=== PATIENT | female | born 1965 | race Caucasian/White ===

== ENCOUNTER 2017-08-24 06:13 | Inpatient (IN) ==
[2017-08-24] MEDS ORDERED: Isovue-370 500 ML INFUS..BTL IV ONE (06:33)
[2017-08-24] MEDS ORDERED: Ampicillin/Sulbactam 3,000 MG in 0.9 % Sodium Chloride Mini Bag 100 ML IVPB ONE (06:36)
--- NOTE | 2017-08-24 06:38 | Emergency Department Note ---
Disposition Clinical Impression: Ludwigs angina Disposition: Still a Patient Condition: Fair Referrals: Ponce Regalado CNP [Primary Care Provider] - Forms: ED Satisfaction Letter, Work/School Release Time of Disposition: 06:44 General Adult HPI - General Chief complaint: ED General Medical Stated complaint: facial swelling Time Seen by Provider: 08/24/17 06:21 Source: patient Mode of arrival: ambulatory Limitations: no limitations Nursing Notes Reviewed: Yes Vital Signs Reviewed: Yes - History of Present Illness HPI Narrative: 51-year-old female presents for evaluation of facial swelling. Patient states symptom onset was this morning when she woke up. Patient woke up around 5:30 this morning which is now or prior to ED arrival. Patient noted that she had facial swelling and she "double chin". Patient noted difficulty opening her mouth and had tenderness and swelling on her tongue. Patient states that she had low-grade fever yesterday. Denies any runny nose or cough. Patient states she has had a left lower tooth that has been bothering her. Patient noted this morning that she was drooling. Patient denies any difficulty breathing. No chest pain. Pain Scale: 6 - Related Data Allergies Allergy/AdvReac Type Severity Reaction Status Date / Time ciprofloxacin [From Cipro] Allergy Palpitation Verified 08/24/17 06:16 s All systems ED: reviewed and negative except as stated. Constitutional: Reports: fever Cardiovascular: Denies: chest pain Respiratory: Denies: cough, dyspnea Gastrointestinal: Denies: nausea, vomiting Past Medical History - Past Medical History Source: patient Medical history: Reports: no medical history Psychiatric history: Reports: depression - Social History Smoking Status: Current every day smoker Alcohol use: Reports: none Drug use: Reports: none Physical Exam - General Limitations: no limitations General appearance: alert, in no apparent distress - Head Head exam: atraumatic, normocephalic, normal inspection - Eye Eye exam: Present: normal appearance, PERRL, EOMI - ENT ENT exam: mucous membranes moist - Expanded ENT Exam External ear exam: Present: normal external inspection Nose exam: negative: rhinorrhea Mouth exam: Present: trismus, tongue elevation. Absent: drooling Teeth exam: Present: dental caries Throat exam: Present: other (Difficult to visualize a posterior oropharynx given the limited view. Patient has has trismus. Patient does have subungual swelling and tenderness consistent with ludwigs angina.). Absent: muffled voice - Neck Neck exam: Present: other (Subungual swelling and tenderness on palpation. Fullness of the anterior neck.) - Chest Chest inspection: Present: normal inspection - Respiratory Respiratory exam: Absent: respiratory distress - Cardiovascular Cardiovascular exam: Present: regular rate, normal rhythm - Abdominal Exam Abdominal exam: Present: soft, Non-Tender - Extremities Exam Extremities exam: Present: normal inspection. Absent: pedal edema - Expanded Lower Extremity Exam Neurovascular/Tendon exam: Present: normal capillary refill - Neurological Exam Neurological exam: Present: alert, oriented X3, CN II-XII intact - Skin Skin exam: Present: warm, dry, intact, normal color Course Course Narrative: Patient has concerning signs symptoms of ludwigs angina. Dr. Castillo discussed case with the on-call ENT will be in to evaluate the patient. Disposition will likely be an emergent case to the OR. - Consultations Consultation #1: Dr. Castillo Time: 06:32 Vital Signs Temperature 98.7 F 08/24/17 06:13 Pulse Rate 77 08/24/17 06:13 Respiratory Rate 16 08/24/17 06:13 Blood Pressure 149/84 08/24/17 06:13 O2 Sat by Pulse Oximetry 97 08/24/17 06:13 Temperature 98.7 F 08/24/17 06:21 Pulse Rate 72 08/24/17 07:04 Respiratory Rate 16 08/24/17 07:04 Blood Pressure 134/75 08/24/17 07:04 O2 Sat by Pulse Oximetry 97 08/24/17 07:04 Oxygen Delivery Oxygen Delivery Room Air Medical Decision Making - Lab Data Lab results reviewed: Yes I reviewed the patient's lab results. Result diagrams: 08/24/17 06:24 08/24/17 06:24 Lab Results 08/24/17 08/24/17 Range/Units 06:24 06:24 WBC 12.1 H (4.3-11.1) K/mcL RBC 4.59 (3.82-4.97) M/mcL Hgb 13.7 (11.5-15.4) g/dL Hct 40.3 (35.3-44.9) % MCV 87.8 (83.0-100.0) fL MCH 29.8 (28.0-33.3) pg MCHC 34.0 (31.6-35.5) g/dL RDW 12.7 (11.5-14.5) % Plt Count 249 (140-400) K/mcL MPV 9.1 L (9.4-12.4) fL Immature Gran % 0.4 (0-4) % Seg Neutrophils % 80.0 % Lymphocytes % 8.9 % Monocytes % 8.1 % Eosinophils % 2.1 % Basophils % 0.5 % Neutrophils # 9.7 H (1.6-8.9) K/mcL Lymphocytes # 1.1 (0.6-4.6) K/mcL Monocytes # 1.0 (0.0-1.3) K/mcL Eosinophils # 0.3 (0.0-0.6) K/mcL Basophils # 0.1 (0.0-0.2) K/mcL Sodium 132 L (136-145) mEq/L Potassium 4.0 (3.5-5.1) mEq/L Chloride 99 (98-107) mEq/L Carbon Dioxide 22 L (23-29) mEq/L BUN 11 (6-20) mg/dL Creatinine 0.63 (0.60-1.20) mg/dL Est GFR ( Amer) > 60 (> 60) Est GFR (Non-Af Amer) > 60 (> 60) BUN/Creatinine Ratio 17 (6-26) Glucose 98 (70-105) mg/dL Calculated Osmolality 273 L (280-300) Calcium 9.0 (8.6-10.3) mg/dL - EKG Data EKG #1 EKG attestation: Yes I reviewed and interpreted this EKG. EKG shows normal: sinus rhythm Rate: normal Rhythm: NSR Mode/QRS: normal Q waves: v1, v2 Interpretation: no acute changes S.B.A.Edwar - Jose Manuel Situation: Demographics Background: Presenting Complaint Assessment: Vital Signs, Patient/Family Expectation Recommendation: Barrier(s) to disposition, Recommendation based on pending studies, treatments, or consults S.B.ARudi Report Given to: Dr. Dez Richard Repor Time: 07:28
--- NOTE | 2017-08-24 06:39 | Emergency Department Note ---
Disposition Forms: ED Satisfaction Letter, Work/School Release General Adult HPI - General Chief complaint: ED General Medical Stated complaint: facial swelling Time Seen by Provider: 08/24/17 06:21 Source: patient Limitations: no limitations - History of Present Illness Pain Scale: 6 - Related Data Allergies Allergy/AdvReac Type Severity Reaction Status Date / Time ciprofloxacin [From Cipro] Allergy Palpitation Verified 08/24/17 06:16 s Past Medical History - Past Medical History Medical history: Reports: no medical history Psychiatric history: Reports: depression - Social History Smoking Status: Current every day smoker Alcohol use: Reports: none Drug use: Reports: none Physical Exam - General Limitations: no limitations General appearance: alert Course Vital Signs Temperature 98.7 F 08/24/17 06:13 Pulse Rate 77 08/24/17 06:13 Respiratory Rate 16 08/24/17 06:13 Blood Pressure 149/84 08/24/17 06:13 O2 Sat by Pulse Oximetry 97 08/24/17 06:13 Temperature 98.7 F 08/24/17 06:21 Pulse Rate 77 08/24/17 06:21 Respiratory Rate 16 08/24/17 06:21 Blood Pressure 149/84 08/24/17 06:21 O2 Sat by Pulse Oximetry 97 08/24/17 06:21 Oxygen Delivery Oxygen Delivery Room Air Attestation Statement - Attestation Attestation: I examined this patient and my medical decision-making was reviewed with the Resident Physician. I agree with the documented findings, disposition and treatment plan as described except to the extent set forth below. Findings consistent with Ki angina. We will obtain CT scan of the neck. Emergent consultation with ear nose and throat was obtained. Blood cultures and antibiotics were emergently initiated. The patient be surgically evaluated in the emergency department before final disposition.
[2017-08-24 06:43] LABS: Basophils # 0.1 K/mcL (0.0-0.2); Basophils % 0.5 %; Eosinophils # 0.3 K/mcL (0.0-0.6); Eosinophils % 2.1 %; Hematocrit 40.3 % (35.3-44.9); Hemoglobin 13.7 g/dL (11.5-15.4); Immature Granulocytes % 0.4 % (0-4); Lymphocytes # 1.1 K/mcL (0.6-4.6); Lymphocytes % 8.9 %; Mean Corpuscular Hemoglobin 29.8 pg (28.0-33.3); Mean Corpuscular Volume 87.8 fL (83.0-100.0); Mean Platelet Volume 9.1 fL (9.4-12.4); Monocytes % 8.1 %; Neutrophils # 9.7 K/mcL (1.6-8.9); Platelet Count 249 K/mcL (140-400); Red Blood Count 4.59 M/mcL (3.82-4.97); Red Cell Distribution Width 12.7 % (11.5-14.5)
[2017-08-24 07:03] LABS: BUN/Creatinine Ratio 17 (6-26); Blood Urea Nitrogen 11 mg/dL (6-20); Carbon Dioxide 22 mEq/L (23-29); Chloride 99 mEq/L (98-107); Glucose 98 mg/dL (70-105); Osmolality,Calculated 273 (280-300); Sodium 132 mEq/L (136-145); eGFR For African Americans > 60 (> 60); eGFR For Non-African Americans > 60 (> 60)
--- NOTE | 2017-08-24 07:16 | Emergency Department Note ---
Disposition Clinical Impression: Ludwigs angina Disposition: Admitted As Inpatient Condition: Fair Referrals: Ponce Regalado CNP [Primary Care Provider] - Forms: ED Satisfaction Letter, Work/School Release General Adult HPI - General Chief complaint: ED General Medical Stated complaint: facial swelling Time Seen by Provider: 08/24/17 06:21 Source: patient Mode of arrival: ambulatory Limitations: no limitations - History of Present Illness Pain Scale: 6 - Related Data Allergies Allergy/AdvReac Type Severity Reaction Status Date / Time ciprofloxacin [From Cipro] Allergy Palpitation Verified 08/24/17 06:16 s Constitutional: Reports: fever Cardiovascular: Denies: chest pain Respiratory: Denies: cough, dyspnea Gastrointestinal: Denies: nausea, vomiting Past Medical History - Past Medical History Medical history: Reports: no medical history Psychiatric history: Reports: depression - Social History Smoking Status: Current every day smoker Alcohol use: Reports: none Drug use: Reports: none Physical Exam - General Limitations: no limitations General appearance: alert, in no apparent distress Course Course Narrative: accetped sign out from Dr. Castillo. This is likey a case of Ki angina from an infected tooth. Dr. Molina (ENT) will be assessing at bedside and evlaution for whetehr this patinet needs to be taken to the OR. We will keep her NPO at this time. Patinet is stable and soft tissue neck is pending. - Consultations Consultation #1: ENT Dr. Molina evaluted patient at bedside and he does not anticipate an immeadiate airway compromise at this time and states that this is VERY EARLY onset danielle orginating form the 3rd lower molar and there is no drainable abscess. He states that he will not be taking the patien tot the OR immeadiately and that to have her on unasyn and vanc. She will be fine to be taken to a step down unit and will be evaluted with scope at noon Time: 07:39 Consultation #2: discussed case with Dr. Webb accepts patient ot his service. Agrees with step down unit. Time: 07:41 Vital Signs Temperature 98.7 F 08/24/17 06:13 Pulse Rate 77 08/24/17 06:13 Respiratory Rate 16 08/24/17 06:13 Blood Pressure 149/84 08/24/17 06:13 O2 Sat by Pulse Oximetry 97 08/24/17 06:13 Temperature 98.7 F 08/24/17 06:21 Pulse Rate 72 08/24/17 07:04 Respiratory Rate 16 08/24/17 07:04 Blood Pressure 134/75 08/24/17 07:04 O2 Sat by Pulse Oximetry 97 08/24/17 07:04 Oxygen Delivery Oxygen Delivery Room Air Medical Decision Making - Lab Data Result diagrams: 08/24/17 06:24 08/24/17 06:24 Lab Results 08/24/17 08/24/17 Range/Units 06:24 06:24 WBC 12.1 H (4.3-11.1) K/mcL RBC 4.59 (3.82-4.97) M/mcL Hgb 13.7 (11.5-15.4) g/dL Hct 40.3 (35.3-44.9) % MCV 87.8 (83.0-100.0) fL MCH 29.8 (28.0-33.3) pg MCHC 34.0 (31.6-35.5) g/dL RDW 12.7 (11.5-14.5) % Plt Count 249 (140-400) K/mcL MPV 9.1 L (9.4-12.4) fL Immature Gran % 0.4 (0-4) % Seg Neutrophils % 80.0 % Lymphocytes % 8.9 % Monocytes % 8.1 % Eosinophils % 2.1 % Basophils % 0.5 % Neutrophils # 9.7 H (1.6-8.9) K/mcL Lymphocytes # 1.1 (0.6-4.6) K/mcL Monocytes # 1.0 (0.0-1.3) K/mcL Eosinophils # 0.3 (0.0-0.6) K/mcL Basophils # 0.1 (0.0-0.2) K/mcL Sodium 132 L (136-145) mEq/L Potassium 4.0 (3.5-5.1) mEq/L Chloride 99 (98-107) mEq/L Carbon Dioxide 22 L (23-29) mEq/L BUN 11 (6-20) mg/dL Creatinine 0.63 (0.60-1.20) mg/dL Est GFR ( Amer) > 60 (> 60) Est GFR (Non-Af Amer) > 60 (> 60) BUN/Creatinine Ratio 17 (6-26) Glucose 98 (70-105) mg/dL Calculated Osmolality 273 L (280-300) Calcium 9.0 (8.6-10.3) mg/dL
[2017-08-24] MEDS ORDERED: *HR* FentaNYL (PF) 100 MCG/2 ML VIAL IVP ONE (07:41)
--- NOTE | 2017-08-24 07:52 | ENT - Consult Note ---
Date of Encounter: 08/24/17 Time of Encounter: 07:30 Assessment and Plan (1) Ludwigs angina Current Visit: Yes Status: Acute White female with early cellulitis sublingual and submental region with minimal symptoms or close observation and hospitalization with IV antibiotics planned to scope her later today to evaluate for any possible airway swelling CT scan obtained revealed no evidence of abscess or areas of other concern for close observation and hospitalization patient will probably need to have the second molar extracted eventually History of Present Illness Consult date: 08/24/17 Reason for ENT Consult: other (dental cellulitis) History of present illness: 51-year-old white female with history of onset several days ago left ear pain without hearing effects then developed some pain in the left second mandibular molar and yesterday developed some swelling in the submental region patient denies problems breathing talking or swallowing no drooling is not been on any antibiotics recently was seen in the emergency room treated with a dose of Unasyn and vancomycin and immediately felt some relief Past Med Surg Social Fam HX - Past Medical History Medical history: no medical history Psychiatric history: depression - Social History Smoking Status: Current every day smoker Alcohol use: none Drug use: none Medications and Allergies 3 Allergy/AdvReac Type Severity Reaction Status Date / Time ciprofloxacin [From Cipro] Allergy Palpitation Verified 08/24/17 06:16 s ENT Exam Initial Vital Signs Temp Pulse Resp BP Pulse Ox 98.7 F 77 16 149/84 97 08/24/17 06:13 08/24/17 06:13 08/24/17 06:13 08/24/17 06:13 08/24/17 06:13 - General physical appearance well developed, well nourished, no distress, no pain. negative: moderate distress, severe distress, moderate pain, severe pain, cachectic, obese - Eyes PERRL, normal ocular movement, icteric - ENT normal pinna, normal nares, normal mucosa, no hearing loss, no congestion, Other (Submental swelling minimal there is tenderness to palpation of the left second mandibular molar and some sublingual swelling of a mild degree the tongue is not thrust posteriorly there is no evidence of airway difficulty or swallowing difficulty or drooling). negative: decreased hearing, deviated nasal septum, nasal discharge, poor fci, dentures, mucosal exudate, dry mucosa - Neck no masses, trachea midline, no lymphadectomy. negative: deviated trachea, diffuse goiter, limited ROM - Respiratory normal expansion, normal respiratory effort, clear to percussion, clear to auscultation - Abdomen Abdomen: soft, non tender, bowel sounds, no tender, no surgical scars - Integumentary no rash, no growths, no abnormal pigmentation - Neurologic normal coordination, normal sensation - Musculoskeletal normal gait, normal posture - Psychiatric oriented to time, oriented to person, oriented to place, speech is normal, memory intact Exam Initial Vital Signs Temp Pulse Resp BP Pulse Ox 98.7 F 77 16 149/84 97 08/24/17 06:13 08/24/17 06:13 08/24/17 06:13 08/24/17 06:13 08/24/17 06:13 Results - Labs 08/24/17 06:24 08/24/17 06:24 Abnormal lab results WBC 12.1 K/mcL (4.3-11.1) H 08/24/17 06:24 MPV 9.1 fL (9.4-12.4) L 08/24/17 06:24 Neutrophils # 9.7 K/mcL (1.6-8.9) H 08/24/17 06:24 Sodium 132 mEq/L (136-145) L 08/24/17 06:24 Carbon Dioxide 22 mEq/L (23-29) L 08/24/17 06:24 Calculated Osmolality 273 (280-300) L 08/24/17 06:24 Diabetes panel 08/24/17 Range/Units 06:24 Sodium 132 L (136-145) mEq/L Potassium 4.0 (3.5-5.1) mEq/L Chloride 99 (98-107) mEq/L Carbon Dioxide 22 L (23-29) mEq/L BUN 11 (6-20) mg/dL Creatinine 0.63 (0.60-1.20) mg/dL Glucose 98 (70-105) mg/dL Calcium 9.0 (8.6-10.3) mg/dL Calcium panel 08/24/17 Range/Units 06:24 Calcium 9.0 (8.6-10.3) mg/dL Pituitary panel 08/24/17 Range/Units 06:24 Sodium 132 L (136-145) mEq/L Potassium 4.0 (3.5-5.1) mEq/L Chloride 99 (98-107) mEq/L Carbon Dioxide 22 L (23-29) mEq/L BUN 11 (6-20) mg/dL Creatinine 0.63 (0.60-1.20) mg/dL Glucose 98 (70-105) mg/dL Calcium 9.0 (8.6-10.3) mg/dL Adrenal panel 08/24/17 Range/Units 06:24 Sodium 132 L (136-145) mEq/L Potassium 4.0 (3.5-5.1) mEq/L Chloride 99 (98-107) mEq/L Carbon Dioxide 22 L (23-29) mEq/L BUN 11 (6-20) mg/dL Creatinine 0.63 (0.60-1.20) mg/dL Glucose 98 (70-105) mg/dL Calcium 9.0 (8.6-10.3) mg/dL All other labs normal. Consult Discharge Plan - Plan Referrals: Ponce Regalado CNP [Primary Care Provider] -
[2017-08-24] MEDS ORDERED: Naloxone 0.4 MG/ML INJ IVP PRN (10:24)
[2017-08-24] MEDS ORDERED: Ondansetron 4 MG/2 ML VIAL IVP PRN (10:24)
--- NOTE | 2017-08-24 10:42 | Internal Med History&Physical ---
Date of Encounter: 08/24/17 Time of Encounter: 08:47 Internal Medicine - H&P: HPI Chief complaint: "Neck swelling and pain" Admitted From: Emergency Dept Plans for Post Hospital Care: Home History of present illness: Ms. Carmichael is a 51 year old female who presented to ED with 1-day history of worsening neck swelling and pain. She states that she woke up this morning and noticed her neck and face were swollen and painful. She states that she has had tooth pain and minor facial swelling off and on over the last few months. Today, it was worse than ever before. She has had some left sided tooth pain. She denies any tongue swelling or difficulty breathing. She denies fever, chills, chest pain, SOB, nausea, vomiting, dysphagia, drooling, abdominal pain, changes in bladder, or changes in bowels. In the ED, WBC was mildly elevated at 12.1. Sodium mildly decreased at 132. Blood cultures were obtained. ENT was consulted, and they thought this was early Ki's angina. They plan on scoping her today. CT soft tissue neck showed no discrete abscess, but significant inflammation. Source is likely left lower molar. Patient was given one dose of IV unasyn and one dose of IV vancomycin in ED. She also received fentanyl IV for pain. She states that her pain is much better during my interview. She does not look to be in any distress. Respirations are stable on room air. Past Med Surg Social Fam HX - Past Medical History Attestation: Yes The following information was validated with the patient. Source: patient Medical history: no medical history Psychiatric history: depression - Past Surgical History Surgical History: no surgical history Additional surgical history: DNC - Social History Smoking Status: Current every day smoker Smokeless Tobacco Status: No Alcohol use: none Drug use: none - Family History Mother Adopted: Rosalie: Destiny Zapata Age: 78 Family Member Ethnicity: Non- Living Status: Still Living Hx Family Cardiac Disorders: Yes (HTN, CAD, CHF) Hx Family Endocrine Disorder: Yes (DM) Hx Family Neuromuscular Disorders: Yes (STROKE) - Additional Family History Additional family history: Family history verified with patient. Internal Medicine - H&P: Meds 3 Allergy/AdvReac Type Severity Reaction Status Date / Time ciprofloxacin [From Cipro] Allergy Palpitation Verified 08/24/17 06:16 s All Systems PM: A 10-system review of systems was performed and is negative for pertinent findings except as documented above in the HPI. - Constitutional Vitals: Temp Pulse Resp BP Pulse Ox 98.9 F 66 14 137/79 98 08/24/17 09:06 08/24/17 09:06 08/24/17 09:06 08/24/17 09:06 08/24/17 09:06 General appearance: Present: cooperative, A&O X 3, pleasant, no acute distress, answers questions appropriately - Head Head exam: Present: atraumatic, normal inspection, normocephalic - Eye Eye exam: Present: EOMI, PERRL. Absent: conjunctival injection, nystagmus, scleral icterus - ENT ENT exam: Present: mucous membranes moist, normal external ear exam - Neck Neck exam general surgery: Present: full ROM Additional comments: Moderate edema and mild TTP over anterior neck - Respiratory Respiratory exam: Present: CTAB. Absent: accessory muscle use, rales, rhonchi, wheezes Additional comments: Normal WOB - Cardiovascular Cardiovascular exam: Present: RRR, +S1, +S2. Absent: diastolic murmur, gallop, rubs, systolic murmur Additional comments: No BLE edema - GI/Abdominal GI/Abdominal exam: Present: normal bowel sounds, soft. Absent: distended, hepatomegaly, mass, splenomegaly, tenderness - Neurological Exam Neurological exam: Present: alert, CN II-XII intact, oriented X3, no focal deficits, strengths equal and symetr throughout. Absent: motor sensory deficit , facial droop, speech deficit - Psychiatric Psychiatric exam: Present: normal affect, normal mood. Absent: agitated, anxious, depressed - Skin Skin exam: Present: dry, intact, warm. Absent: cyanosis, rash Internal Med - H&P Results - Labs CBC & Chem 7: 08/24/17 06:24 08/24/17 06:24 - Assessment and plan (1) Ludwigs angina Current Visit: Yes Status: Acute Assessment and plan: Likely secondary to left lower molar infection. Admit inpatient to step-down unit for close monitoring. Monitor for airway compromise. ENT consulted; appreciate input. NPO for possible scope today. No abscess. Continue IV unasyn and IV vancomycin. Start IV toradol and SL oxycodone PRN pain. Continue IV NS while NPO. Monitor closely. (2) Tooth infection Current Visit: Yes Status: Acute Assessment and plan: IV antibiotics as per above. Will need dentist follow up after treatment of acute inflammation as per above. (3) Nicotine dependence Current Visit: Yes Status: Acute Assessment and plan: Start nicotine transdermal. Qualifiers: Nicotine product type: cigarettes Substance use status: unspecified nicotine-induced disorder Qualified Code(s): F17.219 - Nicotine dependence, cigarettes, with unspecified nicotine-induced disorders (4) DVT prophylaxis Current Visit: Yes Status: Acute Assessment and plan: Start lovenox 40 mg SQ QD and SCDs. - Time Spent With Patient Total time spent is greater than 50% in coordination of care (as documented) at patient's floor/unit and/or counseling patient: less than 15 minutes
[2017-08-24] MEDS: Ampicillin/Sulbactam 3,000 MG in 0.9 % Sodium Chloride Mini Bag 100 ML IVPB SCH ×2 (11:40→17:27)
[2017-08-24] MEDS: Ketorolac 15 MG/ML VIAL IVP PRN ×3 (11:40→23:33)
[2017-08-24] MEDS: Nicotine 14 MG PATCH.TD24 TD SCH (11:41)
[2017-08-24] MEDS: 0.9 % Sodium Chloride 1,000 ML IVC SCH (11:41)
[2017-08-24] MEDS: *HR* Enoxaparin 40 MG/0.4 ML SYRINGE SQ SCH (15:01)
[2017-08-24] MEDS: NORETHINDRONE ACET PO SCH (19:55)
[2017-08-24] MEDS: ESTRADIOL PO SCH (19:55)
[2017-08-24] MEDS: OXYCODONE Oral CONC 10 MG/0.5 ML ORAL.SYG SL PRN (21:12)
--- NOTE | 2017-08-24 22:06 | Electrocardiograph Report ---
[place] [facility] Test Date: 2017-08-24 Pat Name: Dana Carmichael Department: 103 Room: 2S4 Gender: F [employer] Planning Manager: LRS : 1965 Requested By: Camilo Mckeon Order Number: [id number] Reading MD: Enrrique Flores Measurements Intervals [place] Rate: 87 P: -12 [place]: 149 QRS: 38 QRSD: 93 T: 48 QT: 352 QTc: 396 Interpretive Statements SINUS RHYTHM Electronically Signed On 08-24-2017 22:04:14 EDT by Enrrique Flores
[2017-08-25] MEDS: OXYCODONE Oral CONC 10 MG/0.5 ML ORAL.SYG SL PRN ×5 (01:13→20:42)
[2017-08-25] MEDS: 0.9 % Sodium Chloride 1,000 ML IVC SCH ×3 (03:29→12:25)
[2017-08-25 06:21] LABS: Basophils % 0.5 %; Eosinophils # 0.3 K/mcL (0.0-0.6); Eosinophils % 3.4 %; Hematocrit 33.7 % (35.3-44.9); Hemoglobin 11.3 g/dL (11.5-15.4); Immature Granulocytes % 0.2 % (0-4); Lymphocytes # 1.6 K/mcL (0.6-4.6); Lymphocytes % 18.7 %; Mean Corpuscular HGB Conc 33.5 g/dL (31.6-35.5); Mean Corpuscular Hemoglobin 29.8 pg (28.0-33.3); Mean Corpuscular Volume 88.9 fL (83.0-100.0); Mean Platelet Volume 9.2 fL (9.4-12.4); Monocytes % 12.3 %; Neutrophils # 5.4 K/mcL (1.6-8.9); Platelet Count 218 K/mcL (140-400); Red Blood Count 3.79 M/mcL (3.82-4.97); Red Cell Distribution Width 12.9 % (11.5-14.5); Segmented Neutrophils % 64.9 %
[2017-08-25 06:32] LABS: BUN/Creatinine Ratio 20 (6-26); Blood Urea Nitrogen 11 mg/dL (6-20); Calcium 8.2 mg/dL (8.6-10.3); Carbon Dioxide 24 mEq/L (23-29); Chloride 105 mEq/L (98-107); Glucose 105 mg/dL (70-105); Osmolality,Calculated 278 (280-300); Potassium 4.3 mEq/L (3.5-5.1); Sodium 134 mEq/L (136-145); eGFR For African Americans > 60 (> 60); eGFR For Non-African Americans > 60 (> 60)
[2017-08-25] MEDS: ESTRADIOL PO SCH (07:30)
[2017-08-25] MEDS: NORETHINDRONE ACET PO SCH (07:30)
--- NOTE | 2017-08-25 07:51 | ENT - Progress Note ---
Date of Encounter: 08/25/17 Time of Encounter: 07:30 - Assessment and Plan (1) Ludwigs angina Current Visit: Yes Status: Acute left sice only submental and sublingual swelling pain improving still second molar source recommend continued iv ab and observation ok to feed white count decreased consider dc if need bed and fu on po antibiotics otherwise continue in hospital Subjective Patient reports: no new complaints, feels better, still having pain, pain is less, tolerating liquids well, afebrile Objective Initial Vital Signs Temp Pulse Resp BP Pulse Ox 98.7 F 77 16 149/84 97 08/24/17 06:13 08/24/17 06:13 08/24/17 06:13 08/24/17 06:13 08/24/17 06:13 - General physical appearance well developed, well nourished, moderate pain - Eyes PERRL, normal ocular movement - ENT normal nares - Neck trachea midline, other (swelling submental primarily left side) - Labs 08/25/17 05:46 08/25/17 05:46 Diabetes panel 08/25/17 Range/Units 05:46 Sodium 134 L (136-145) mEq/L Potassium 4.3 (3.5-5.1) mEq/L Chloride 105 (98-107) mEq/L Carbon Dioxide 24 (23-29) mEq/L BUN 11 (6-20) mg/dL Creatinine 0.55 L (0.60-1.20) mg/dL Glucose 105 (70-105) mg/dL Calcium 8.2 L (8.6-10.3) mg/dL Calcium panel 08/25/17 Range/Units 05:46 Calcium 8.2 L (8.6-10.3) mg/dL Pituitary panel 08/25/17 Range/Units 05:46 Sodium 134 L (136-145) mEq/L Potassium 4.3 (3.5-5.1) mEq/L Chloride 105 (98-107) mEq/L Carbon Dioxide 24 (23-29) mEq/L BUN 11 (6-20) mg/dL Creatinine 0.55 L (0.60-1.20) mg/dL Glucose 105 (70-105) mg/dL Calcium 8.2 L (8.6-10.3) mg/dL Adrenal panel 08/25/17 Range/Units 05:46 Sodium 134 L (136-145) mEq/L Potassium 4.3 (3.5-5.1) mEq/L Chloride 105 (98-107) mEq/L Carbon Dioxide 24 (23-29) mEq/L BUN 11 (6-20) mg/dL Creatinine 0.55 L (0.60-1.20) mg/dL Glucose 105 (70-105) mg/dL Calcium 8.2 L (8.6-10.3) mg/dL Consult Discharge Plan - Plan Referrals: Ponce Regalado CNP [Primary Care Provider] -
[2017-08-25] MEDS: Nicotine 14 MG PATCH.TD24 TD SCH (07:54)
[2017-08-25] MEDS: *HR* Enoxaparin 40 MG/0.4 ML SYRINGE SQ SCH (07:54)
[2017-08-25] MEDS: Ampicillin/Sulbactam 3,000 MG in 0.9 % Sodium Chloride Mini Bag 100 ML IVPB SCH ×5 (07:55→23:22)
[2017-08-25] MEDS: Ketorolac 15 MG/ML VIAL IVP PRN ×3 (08:00→21:54)
--- NOTE | 2017-08-25 12:29 | Internal Med Progress Note ---
Date of Encounter: 08/25/17 Time of Encounter: 12:26 - Assessment and plan (1) Ludwigs angina Current Visit: Yes Status: Acute Assessment and plan: Likely secondary to left lower molar infection. Continue IV antibiotics and close monitoring. No signs of airway comprimise. ENT consulted and patient was evaluated. Agreed with continuing IV abx at this point. IV toradol and SL oxycodone PRN pain. Advancing diet today, hold IV fluids I suspect drop in hemoglobin and hematocrit is hemodilution. She is +1.6 L since admission. Recheck in AM. (2) Tooth infection Current Visit: Yes Status: Acute Assessment and plan: IV antibiotics as per above. Needs dentist follow up after treatment of acute inflammation as per above. (3) Nicotine dependence Current Visit: Yes Status: Acute Assessment and plan: Start nicotine transdermal. Qualifiers: Nicotine product type: cigarettes Substance use status: unspecified nicotine-induced disorder Qualified Code(s): F17.219 - Nicotine dependence, cigarettes, with unspecified nicotine-induced disorders (4) DVT prophylaxis Current Visit: Yes Status: Acute Assessment and plan: Lovenox 40 mg SQ daily - Time Spent With Patient Total time spent is greater than 50% in coordination of care (as documented) at patient's floor/unit and/or counseling patient: - Subjective Interval history: Patient states jaw/mouth still has pain and swelling present that is overall improving. - Constitutional Vitals: Temp Pulse Resp BP Pulse Ox 98.6 F 76 25 116/68 97 08/25/17 11:48 08/25/17 11:48 08/25/17 11:48 08/25/17 11:48 08/25/17 11:48 General appearance: Present: cooperative, A&O X 3, pleasant, no acute distress, answers questions appropriately - Head Head exam: Present: atraumatic, normocephalic - Eye Eye exam: Present: PERRL, conjuntiva pink, sclera anicteric Pupils: Present: PERRL - Neck Neck exam general surgery: Present: supple, trachea midline. Absent: lymphadenopathy Additional comments: Mild TTP of anterior neck. - Respiratory Respiratory exam: Present: CTAB. Absent: accessory muscle use, rales, rhonchi, wheezes - Cardiovascular Cardiovascular exam: Present: RRR, +S1, +S2. Absent: diastolic murmur, gallop, rubs, systolic murmur - GI/Abdominal GI/Abdominal exam: Present: normal bowel sounds, soft, no peritoneal signs. Absent: distended, tenderness - Extremities Exam Extremities exam: Present: warm, radial pulses palpable and symmetrical. Absent : calf tenderness, cyanotic, pedal edema - Neurological Exam Neurological exam: Present: CN II-XII intact, oriented X3, no focal deficits. Absent: pronater drift, facial droop, speech deficit - Skin Skin exam: Present: dry, intact Internal Medicine: Result - Labs CBC & Chem 7: 08/25/17 05:46 08/25/17 05:46 Labs: Short CBC 08/25/17 Range/Units 05:46 WBC 8.3 (4.3-11.1) K/mcL Hgb 11.3 L D (11.5-15.4) g/dL Hct 33.7 L (35.3-44.9) % Plt Count 218 (140-400) K/mcL Neutrophils # 5.4 (1.6-8.9) K/mcL BMP 08/25/17 05:46 Sodium 134 L Potassium 4.3 Chloride 105 Carbon Dioxide 24 BUN 11 Creatinine 0.55 L Glucose 105 Calcium 8.2 L - VTE Documentation of Mechanical Device: Intermittent pneumatic compression device Consult Discharge Plan - Plan Referrals: Ponce Regalado CNP [Primary Care Provider] -
[2017-08-25] MEDS ORDERED: Mag Hydrox/Al Hydrox/Simeth 30 ML UDC PO PRN (20:08)
[2017-08-26] MEDS: OXYCODONE Oral CONC 10 MG/0.5 ML ORAL.SYG SL PRN ×2 (01:30→09:36)
[2017-08-26] MEDS: *HR* Enoxaparin 40 MG/0.4 ML SYRINGE SQ SCH (05:27)
[2017-08-26] MEDS: Ampicillin/Sulbactam 3,000 MG in 0.9 % Sodium Chloride Mini Bag 100 ML IVPB SCH ×2 (05:27→11:45)
[2017-08-26] MEDS: Ketorolac 15 MG/ML VIAL IVP PRN ×2 (05:32→11:44)
[2017-08-26 07:19] LABS: Basophils % 0.4 %; Eosinophils # 0.6 K/mcL (0.0-0.6); Eosinophils % 5.9 %; Hematocrit 32.5 % (35.3-44.9); Hemoglobin 10.8 g/dL (11.5-15.4); Immature Granulocytes % 0.3 % (0-4); Lymphocytes # 1.8 K/mcL (0.6-4.6); Lymphocytes % 17.5 %; Mean Corpuscular HGB Conc 33.2 g/dL (31.6-35.5); Mean Corpuscular Hemoglobin 29.8 pg (28.0-33.3); Mean Corpuscular Volume 89.8 fL (83.0-100.0); Mean Platelet Volume 9.3 fL (9.4-12.4); Monocytes # 1.1 K/mcL (0.0-1.3); Monocytes % 10.7 %; Neutrophils # 6.5 K/mcL (1.6-8.9); Platelet Count 234 K/mcL (140-400); Red Blood Count 3.62 M/mcL (3.82-4.97); Red Cell Distribution Width 12.7 % (11.5-14.5); Segmented Neutrophils % 65.2 %
[2017-08-26 07:34] LABS: BUN/Creatinine Ratio 11 (6-26); Blood Urea Nitrogen 7 mg/dL (6-20); Carbon Dioxide 24 mEq/L (23-29); Chloride 105 mEq/L (98-107); Glucose 100 mg/dL (70-105); Osmolality,Calculated 278 (280-300); Potassium 4.1 mEq/L (3.5-5.1); Sodium 135 mEq/L (136-145); eGFR For African Americans > 60 (> 60); eGFR For Non-African Americans > 60 (> 60)
--- NOTE | 2017-08-26 07:59 | ENT - Progress Note ---
Date of Encounter: 08/26/17 Time of Encounter: 07:30 - Assessment and Plan (1) Ludwigs angina Current Visit: Yes Status: Acute left side of sublingual and submental area still mild tenderness and swelling but continuing to improve afebrile in view of continued improvement from ENT standpoint believe discharges appropriate with follow-up tomorrow recommending discharge on by mouth Augmentin and follow-up in the office at 7:45 in the morning with myself Dr hampton also recommended urgent appointment with dentist for evaluation of left second mandibular molar for either acute treatment or extraction there is an obvious caries and this tooth tenderness is the obvious cause of the dental cellulitis thank you Subjective Patient reports: no new complaints, feels better, still having pain, pain is less, tolerating liquids well, afebrile Objective Initial Vital Signs Temp Pulse Resp BP Pulse Ox 98.7 F 77 16 149/84 97 08/24/17 06:13 08/24/17 06:13 08/24/17 06:13 08/24/17 06:13 08/24/17 06:13 - Neck other (swelling sublingual and submandibular improveing) - Labs 08/26/17 06:27 08/26/17 06:27 Diabetes panel 08/26/17 Range/Units 06:27 Sodium 135 L (136-145) mEq/L Potassium 4.1 (3.5-5.1) mEq/L Chloride 105 (98-107) mEq/L Carbon Dioxide 24 (23-29) mEq/L BUN 7 (6-20) mg/dL Creatinine 0.62 (0.60-1.20) mg/dL Glucose 100 (70-105) mg/dL Calcium 8.0 L (8.6-10.3) mg/dL Calcium panel 08/26/17 Range/Units 06:27 Calcium 8.0 L (8.6-10.3) mg/dL Pituitary panel 08/26/17 Range/Units 06:27 Sodium 135 L (136-145) mEq/L Potassium 4.1 (3.5-5.1) mEq/L Chloride 105 (98-107) mEq/L Carbon Dioxide 24 (23-29) mEq/L BUN 7 (6-20) mg/dL Creatinine 0.62 (0.60-1.20) mg/dL Glucose 100 (70-105) mg/dL Calcium 8.0 L (8.6-10.3) mg/dL Adrenal panel 08/26/17 Range/Units 06:27 Sodium 135 L (136-145) mEq/L Potassium 4.1 (3.5-5.1) mEq/L Chloride 105 (98-107) mEq/L Carbon Dioxide 24 (23-29) mEq/L BUN 7 (6-20) mg/dL Creatinine 0.62 (0.60-1.20) mg/dL Glucose 100 (70-105) mg/dL Calcium 8.0 L (8.6-10.3) mg/dL - VTE Documentation of Mechanical Device: Intermittent pneumatic compression device Consult Discharge Plan - Plan Referrals: Ponce Regalado CNP [Primary Care Provider] -
[2017-08-26] MEDS: ESTRADIOL PO SCH (09:13)
[2017-08-26] MEDS: NORETHINDRONE ACET PO SCH (09:13)
[2017-08-26] MEDS: Nicotine 14 MG PATCH.TD24 TD SCH (09:26)
--- NOTE | 2017-08-26 09:33 | Discharge Summary ---
- NOTES TO OUTPATIENT PROVIDER Notes to Outpatient Provider: needs repeat CBC within 1 week Date of Encounter: 08/26/17 Time of Encounter: 09:33 - Discharge Diagnosis (1) Ludwigs angina Priority: Primary Status: Acute Assessment and Plan: presented with neck pain and swelling. CT soft neck CT showed edematous appearance of the left submandibular gland consistent with an acute left submandibular sialadenitis; no obvious abscess. Sx's improved with IV Vanco. Likely secondary to left lower molar infection. Discharge home on Augmentin with next day ENT follow-up. (2) Tooth infection Priority: Primary Status: Acute Assessment and Plan: Cont ATB as noted above. Will need urgent appointment with dentist for evaluation second mandibular molar for either acute treatment or extraction ( has appt with primary dentist 08/27/17 at 1200). (3) Nicotine dependence Priority: Primary Status: Acute Assessment and Plan: current smoker; cessation advised Qualifiers: Nicotine product type: cigarettes Substance use status: unspecified nicotine-induced disorder Qualified Code(s): F17.219 - Nicotine dependence, cigarettes, with unspecified nicotine-induced disorders (4) Anemia Priority: Primary Status: Acute Assessment and Plan: baseline Hgb normal; Hgb dropped to 10.8. No obvious bleeding. Suspect dilutional (received almost 3 liters IV fluid). Recommend repeat CBC within 3-5 days with PCP Qualifiers: Anemia type: unspecified type Qualified Code(s): D64.9 - Anemia, unspecified Hospital course: Please see assessment and plan for hospital course Discharge discussed with: patient (Seen and examined at bedside. Still has melissa left neck swelling and pain but significantly improved. No SOB or dysphagia ) - Time Spent with Patient Total time spent providing and/or coordinating discharge services: - Discharge Medications Prescriptions: Amoxicillin/Clavulanate [Augmentin] 875 mg PO BIDWM #20 tablet Oxycodone HCl 5 mg PO Q4H PRN 5 Days #30 tablet PRN Reason: Pain Home Medications: Citalopram Hydrobromide [Celexa] 40 mg PO DAILY 08/24/17 [History] Estradiol/Norethindrone Acet [Mimvey 1-0.5 mg Tablet] 1 tab PO DAILY 08/24/17 [ History] Amoxicillin/Clavulanate [Augmentin] 875 mg PO BIDWM #20 tablet 08/26/17 [Rx] Oxycodone HCl 5 mg PO Q4H PRN 5 Days #30 tablet 08/26/17 [Rx] Allergies/Adverse Reactions: 3 Allergy/AdvReac Type Severity Reaction Status Date / Time ciprofloxacin [From Cipro] AdvReac Palpitation Verified 08/24/17 12:03 s Date of admission: 08/24/17 19:23 Primary care physician: Ponce Regalado CNP Discharging clinician: Cora Brewster Anticipated date of discharge: 08/26/17 - Constitutional Vitals: Temp Pulse Resp BP Pulse Ox 98.2 F 72 16 135/79 96 08/26/17 07:47 08/26/17 07:47 08/26/17 07:47 08/26/17 07:47 08/26/17 07:47 General appearance: Present: cooperative, A&O X 3, pleasant, no acute distress, answers questions appropriately - Head Head exam: Present: atraumatic, normocephalic - Eye Eye exam: Present: PERRL, conjuntiva pink, sclera anicteric Pupils: Present: PERRL - Neck Neck exam general surgery: Present: tenderness (Left neck swelling and tenderness ), supple, trachea midline. Absent: lymphadenopathy, normal inspection - Respiratory Respiratory exam: Present: CTAB. Absent: accessory muscle use, rales, rhonchi, wheezes - Cardiovascular Cardiovascular exam: Present: RRR, +S1, +S2. Absent: diastolic murmur, gallop, rubs, systolic murmur - GI/Abdominal GI/Abdominal exam: Present: normal bowel sounds, soft, no peritoneal signs. Absent: distended, tenderness - Extremities Exam Extremities exam: Present: warm, radial pulses palpable and symmetrical. Absent : calf tenderness, cyanotic, pedal edema - Neurological Exam Neurological exam: Present: CN II-XII intact, oriented X3, no focal deficits. Absent: pronater drift, facial droop, speech deficit - Skin Skin exam: Present: dry, intact - Patient Status Disposition: Home, Self-Care Condition: Good Functional capacity at discharge: independent ambulation Overall status at discharge: patient is progressing back to baseline - Discharge Instructions Instructions: Amoxicillin/Clavulanate Potassium (By mouth), Oxycodone, Rapid Release (By mouth), Dental Abscess (GEN), Dental Caries (DC), Cellulitis (DC) Follow Up With: Brady Molina MD [Non-Partnered Physician] - 08/27/17 7:15 am Ponce Regalado CNP [Primary Care Provider] - (Please call and schedule a Primary Care appointment with your PCP within 7 days. You should have a repeat CBC) - Diet and Activity Activity: increase activity as tolerated Diet: advance to your usual diet - VTE Documentation of Mechanical Device: Intermittent pneumatic compression device
[2017-08-26 11:56] VITALS: BP 143/70
[2017-08-26] MEDS ORDERED: Aminoglycoside Consult 1 EACH MC ONE (12:30)
== END 2017-08-26 12:31 | disposition home or self-care (01) | DRG 159 ==
LOC: EMEROO 06:13 → 2SOUTHHOLD 06:13 → 3BNU 08-25 18:58
PROVIDERS: ADMIT Family Medicine; ATTEND Family Medicine